=== PATIENT | male | born 1955 | race Caucasian/White ===

== ENCOUNTER 2023-07-04 23:09 | Inpatient (IN) | payer MEDICARE, OTHER ==
[~2023-07-04] VITALS: Ht 177.8 cm; Wt 79.4 kg
[2023-07-04] MEDS ORDERED: PANT40TA49 PO (23:27)
[2023-07-04] MEDS ORDERED: OLAN20TA24 PO (23:27)
[2023-07-04] MEDS ORDERED: RIVA10TA PO (23:27)
[2023-07-04] MEDS ORDERED: HYDR30OI5 TP (23:27)
[2023-07-04] MEDS ORDERED: DONE5TAB34 PO (23:27)
[2023-07-04] MEDS ORDERED: FLUO40CA49 PO (23:27)
[2023-07-04 23:41] LABS: BASOPHILS # (AUTO) 0.1 K/UL (0.0-0.2); BASOPHILS % (AUTO) 0.7 % (0.0-2.0); EOSINOPHILS # (AUTO) 0.2 K/uL (0.0-0.7); EOSINOPHILS % (AUTO) 3.5 % (0.0-7.0); HEMATOCRIT 39.5 % (36.7-47.1); HEMOGLOBIN 12.8 g/dL (12.5-16.3); LYMPHOCYTES # (AUTO) 0.9 K/uL (0.8-4.8); LYMPHOCYTES % (AUTO) 13.3 % (20.5-51.5); MEAN CORPUSCULAR HEMOGLOBIN 29.2 uug (23.8-33.4); MEAN CORPUSCULAR HGB CONC 32 g/dL (32.5-36.3); MEAN CORPUSCULAR VOLUME 89.9 fL (73.0-96.2); MONOCYTES # (AUTO) 0.6 K/uL (0.1-1.30); MONOCYTES % (AUTO) 8.9 % (0.0-11.0); NEUTROPHILS # (AUTO) 5.2 K/uL (1.8-8.9); NEUTROPHILS % (AUTO) 73.6 % (38.5-71.5); PLATELET COUNT (AUTO) 347 K/uL (152-348); RED CELL DISTRIBUTION WIDTH 15.7 % (12.1-16.2); WHITE BLOOD COUNT (AUTO) 7.1 K/uL (3.6-10.2)
[2023-07-04 23:52] LABS: CALCIUM 9.2 mg/dL (8.5-10.1); CARBON DIOXIDE 27 mmol/L (21-32); CHLORIDE 101 mmol/L (98-107); CREATININE 0.8 mg/dL (0.6-1.3); GLUCOSE 116 mg/dL (74-106); POTASSIUM 3.7 mmol/L (3.5-5.1); SODIUM SERUM 136 mmol/L (136-145); UREA NITROGEN, BLOOD 14 mg/dL (7-18)
[2023-07-04 23:57] LABS: AMMONIA < 10 umol/L (11-32); ETHANOL < 3 MG/DL (0-10)
[2023-07-05 00:02] LABS: ALANINE AMINOTRANSFERASE 29 U/L (16-63); ALBUMIN 3.1 g/dL (3.4-5.0); ALKALINE PHOSPHATASE 102 U/L (50-136); ASPARTATE AMINOTRANSFERASE 44 U/L (15-37); BILIRUBIN,DIRECT 0.1 mg/dL (0.0-0.2); BILIRUBIN,TOTAL 0.6 mg/dL (0.2-1.0); TOTAL PROTEIN, SERUM 6.4 g/dL (6.4-8.2)
[2023-07-05 00:06] LABS: THYROID STIMULATING HORMONE 1.848 mIU/mL (0.358-3.740)
[2023-07-05 00:12] LABS: ACETAMINOPHEN < 2.0 ug/mL (10-30)
[2023-07-05 00:13] LABS: DIFFERENTIAL COMMENT 1
[2023-07-05 00:26] LABS: ABG BASE EXCESS 0.6 mmol/L (-2.0-2.0); ABG HCO3 23.8 mmol/L (22.0-26.0); ABG PCO2 34.3 mmHg (35.0-48.0); ABG PO2 48.8 mmHg (75.0-100.0); ABG SITE RIGHT BRACHIAL; ABG TOTAL HEMOGLOBIN 13.8 G/dL (14.0-18.0); AaDO2 86.9 mmHg; COHb 0.8 % (0.0-3.9); MetHb 0.2 % (0.0-1.5); O2Hb 84.1 % (94.0-97.0)
[2023-07-05] MEDS ORDERED: levETIRAcetam 500 MG/5 ML VIAL IV ONE (03:00)
[2023-07-05] MEDS ORDERED: LORAZEPAM 2 MG/1 ML VIAL ONE (03:34)
[2023-07-05] MEDS ORDERED: REMEDY ESSENTIAL ZINC PASTE 113 GM TP PRN (06:30)
[2023-07-05] MEDS ORDERED: HYDROCODONE/APAP 10-325 MG TABLET PO PRN (06:30)
[2023-07-05] MEDS ORDERED: MAGNESIUM HYDROXIDE 30 ML LIQUID UDC PO PRN (06:30)
[2023-07-05] MEDS ORDERED: ONDANSETRON 4 MG/2 ML VIAL IV PRN (06:30)
[2023-07-05] MEDS ORDERED: MORPHINE SULFATE 2 MG/1 ML DISP.SYRIN IV PRN (06:30)
[2023-07-05] MEDS ORDERED: TEMAZEPAM 15 MG CAPSULE PO PRN (06:30)
[2023-07-05] MEDS ORDERED: ENOXAPARIN SODIUM 40 MG/0.4 ML DISP.SYRIN SQ ONE (06:47)
[2023-07-05] MEDS: ENOXAPARIN SODIUM 40 MG/0.4 ML DISP.SYRIN SQ SCH (06:50)
[2023-07-05] MEDS ORDERED: PANTOPRAZOLE SODIUM 40 MG TABLET.DR PO SCH ×2 (07:00→09:00)
[2023-07-05] MEDS ORDERED: IV NORMAL SALINE 250 ML IV ONE (08:10)
[2023-07-05] MEDS ORDERED: IOHEXOL 350 100 ML INFUS..BTL ONE (08:10)
[2023-07-05] MEDS ORDERED: SWABABLE VALVE TRANSFER SET EA MC ONE (08:10)
[2023-07-05] MEDS ORDERED: ASPIRIN EC 325 MG TABLET.DR PO SCH ×2 (09:00)
[2023-07-05] MEDS: FLUOXETINE HCL 20 MG CAPSULE PO SCH (09:59)
[2023-07-05] MEDS: ASPIRIN EC 81 MG TABLET.DR PO SCH (09:59)
[2023-07-05] MEDS: PANTOPRAZOLE SODIUM 40 MG TABLET.DR PO SCH (09:59)
[2023-07-05] MEDS: ENOXAPARIN SODIUM 40 MG/0.4 ML DISP.SYRIN SQ ONE (10:00)
[2023-07-05 16:30] VITALS: BP 99/60; TEMP 97.3; O2SAT 99
[2023-07-05 16:36] LABS: ABG BASE EXCESS 1.4 mmol/L (-2.0-2.0); ABG HCO3 26.3 mmol/L (22.0-26.0); ABG PCO2 42.6 mmHg (35.0-48.0); ABG PH 7.409 (7.340-7.440); ABG PO2 135.3 mmHg (75.0-100.0); ABG SITE RIGHT RADIAL; ABG TOTAL HEMOGLOBIN 13.3 G/dL (14.0-18.0); AaDO2 98.7 mmHg; COHb 0.8 % (0.0-3.9); MetHb 0.1 % (0.0-1.5); O2Hb 98.2 % (94.0-97.0)
[2023-07-05 16:45] VITALS: O2SAT 99
[2023-07-05] MEDS ORDERED: RIVAROXABAN 10 MG TABLET PO SCH (18:00)
[2023-07-05] MEDS: ACETAMINOPHEN 325 MG TABLET PO PRN (18:16)
[2023-07-05 20:00] VITALS: BP 97/62; TEMP 97.4; O2SAT 99
[2023-07-05] MEDS: OLANZAPINE 5 MG TABLET PO SCH (21:39)
[2023-07-05] MEDS: DONEPEZIL 5 MG TABLET PO SCH (21:39)
[2023-07-05] MEDS: ENOXAPARIN SODIUM 80 MG/0.8 ML DISP.SYRIN SQ SCH (21:41)
[2023-07-05 23:17] VITALS: O2SAT 99
[2023-07-06 04:22] LABS: *BILIRUBIN,URIN NEGATIVE (NEGATIVE); *BLOOD, URINE NEGATIVE (NEGATIVE); *CLARITY,URINE CLEAR (CLEAR); *COLOR,URINE YELLOW (YELLOW); *KETONES,URINE NEGATIVE (NEGATIVE); *PROTEIN,URINE NEGATIVE (NEGATIVE); LEUKOCYTE ESTERASE ,URINE NEGATIVE (NEGATIVE); NITRITE, URINE NEGATIVE (NEGATIVE); UGLUCOSE NEGATIVE (NEGATIVE)
[2023-07-06 04:29] LABS: *AMPHETAMINE, URINE NEGATIVE (NEGATIVE); *BARBITURATE, URINE NEGATIVE (NEGATIVE); *BENZODIAZEPINE, URINE NEGATIVE (NEGATIVE); *CANNABINOID, URINE NEGATIVE (NEGATIVE); *COCCAINE, URINE NEGATIVE (NEGATIVE); *OPIATE, URINE NEGATIVE (NEGATIVE); *PHENCYCLIDINE SCREEN,URINE NEGATIVE (NEGATIVE); FENTANYL, URINE NEGATIVE (NEGATIVE)
[2023-07-06 04:57] LABS: BACTERIA,URINE FEW /HPF (NONE SEEN); RBC,URINE 0-3 /HPF (0-3); SQUAMOUS EPITHELIAL CELL,UR FEW /HPF (NONE SEEN); WBC,URINE NONE SEEN /HPF (0-3)
[2023-07-06 05:53] VITALS: BP 99/61; TEMP 97.3; O2SAT 100
[2023-07-06 08:00] VITALS: BP 96/67; TEMP 97.7; O2SAT 99
[2023-07-06 09:10] LABS: BASOPHILS # (AUTO) 0.1 K/UL (0.0-0.2); BASOPHILS % (AUTO) 1.5 % (0.0-2.0); EOSINOPHILS # (AUTO) 0.6 K/uL (0.0-0.7); HEMATOCRIT 39.4 % (36.7-47.1); HEMOGLOBIN 12.9 g/dL (12.5-16.3); LYMPHOCYTES # (AUTO) 0.8 K/uL (0.8-4.8); LYMPHOCYTES % (AUTO) 15.3 % (20.5-51.5); MEAN CORPUSCULAR HEMOGLOBIN 29.6 uug (23.8-33.4); MEAN CORPUSCULAR HGB CONC 33 g/dL (32.5-36.3); MEAN CORPUSCULAR VOLUME 90.5 fL (73.0-96.2); MONOCYTES # (AUTO) 0.4 K/uL (0.1-1.30); MONOCYTES % (AUTO) 7.1 % (0.0-11.0); NEUTROPHILS # (AUTO) 3.2 K/uL (1.8-8.9); NEUTROPHILS % (AUTO) 64.1 % (38.5-71.5); PLATELET COUNT (AUTO) 305 K/uL (152-348); RED BLOOD CELL COUNT(AUTO) 4.35 MIL/uL (4.06-5.63); RED CELL DISTRIBUTION WIDTH 15.5 % (12.1-16.2)
[2023-07-06 09:18] LABS: CALCIUM 9.3 mg/dL (8.5-10.1); CREATININE 1.1 mg/dL (0.6-1.3); MAGNESIUM 2.4 mg/dL (1.8-2.4); PHOSPHOROUS 4.5 mg/dL (2.5-4.9); POTASSIUM 3.5 mmol/L (3.5-5.1)
[2023-07-06 09:30] LABS: DIFFERENTIAL COMMENT 1
[2023-07-06 09:31] LABS: THYROID STIMULATING HORMONE 0.636 mIU/mL (0.358-3.740)
[2023-07-06 12:00] VITALS: BP 90/56; TEMP 97.6; O2SAT 100
[2023-07-06] MEDS: diphenhydrAMINE 25 MG CAP PO PRN (14:35)
[2023-07-06 16:22] VITALS: BP 102/63; TEMP 97.6; O2SAT 99
[2023-07-06 21:00] VITALS: BP 104/62; TEMP 97.6; O2SAT 99
[2023-07-07] VITALS (7 sets, daily range): BP systolic 91–113; BP diastolic 53–75; TEMP 97.7–98.4; O2SAT 95–100
[2023-07-07 07:10] LABS: BASOPHILS # (AUTO) 0.1 K/UL (0.0-0.2); BASOPHILS % (AUTO) 1.9 % (0.0-2.0); EOSINOPHILS # (AUTO) 0.7 K/uL (0.0-0.7); EOSINOPHILS % (AUTO) 12.9 % (0.0-7.0); HEMOGLOBIN 11.5 g/dL (12.5-16.3); LYMPHOCYTES # (AUTO) 0.5 K/uL (0.8-4.8); LYMPHOCYTES % (AUTO) 9.8 % (20.5-51.5); MEAN CORPUSCULAR HEMOGLOBIN 29.5 uug (23.8-33.4); MEAN CORPUSCULAR HGB CONC 33 g/dL (32.5-36.3); MEAN CORPUSCULAR VOLUME 89.7 fL (73.0-96.2); MONOCYTES # (AUTO) 0.5 K/uL (0.1-1.30); MONOCYTES % (AUTO) 9.5 % (0.0-11.0); NEUTROPHILS # (AUTO) 3.5 K/uL (1.8-8.9); NEUTROPHILS % (AUTO) 65.9 % (38.5-71.5); PLATELET COUNT (AUTO) 269 K/uL (152-348); RED BLOOD CELL COUNT(AUTO) 3.91 MIL/uL (4.06-5.63); RED CELL DISTRIBUTION WIDTH 15.1 % (12.1-16.2); WHITE BLOOD COUNT (AUTO) 5.3 K/uL (3.6-10.2)
[2023-07-07 07:24] LABS: DIFFERENTIAL COMMENT 1
[2023-07-07 07:41] LABS: CREATININE 0.9 mg/dL (0.6-1.3); POTASSIUM 3.9 mmol/L (3.5-5.1)
[2023-07-08] VITALS (7 sets, daily range): BP systolic 93–135; BP diastolic 55–80; TEMP 97–97.9; O2SAT 96–100
[2023-07-08 07:06] LABS: EOSINOPHILS # (AUTO) 0.6 K/uL (0.0-0.7); HEMATOCRIT 36.3 % (36.7-47.1); HEMOGLOBIN 11.7 g/dL (12.5-16.3); LYMPHOCYTES # (AUTO) 0.9 K/uL (0.8-4.8); LYMPHOCYTES % (AUTO) 18.6 % (20.5-51.5); MEAN CORPUSCULAR HEMOGLOBIN 29.1 uug (23.8-33.4); MEAN CORPUSCULAR HGB CONC 32 g/dL (32.5-36.3); MEAN CORPUSCULAR VOLUME 90.1 fL (73.0-96.2); MONOCYTES # (AUTO) 0.5 K/uL (0.1-1.30); NEUTROPHILS # (AUTO) 2.6 K/uL (1.8-8.9); NEUTROPHILS % (AUTO) 57.4 % (38.5-71.5); PLATELET COUNT (AUTO) 260 K/uL (152-348); RED BLOOD CELL COUNT(AUTO) 4.03 MIL/uL (4.06-5.63); RED CELL DISTRIBUTION WIDTH 15.2 % (12.1-16.2); WHITE BLOOD COUNT (AUTO) 4.6 K/uL (3.6-10.2)
[2023-07-08 07:11] LABS: DIFFERENTIAL COMMENT 1
[2023-07-08 07:38] LABS: CALCIUM 8.8 mg/dL (8.5-10.1); CREATININE 0.7 mg/dL (0.6-1.3); POTASSIUM 3.9 mmol/L (3.5-5.1)
[2023-07-08] MEDS: APIXABAN 5 MG TABLET PO SCH (08:57)
[2023-07-09 00:14] VITALS: BP 121/74; TEMP 97.8; O2SAT 96
[2023-07-09 04:40] VITALS: BP 102/63; TEMP 97.7; O2SAT 96
[2023-07-09 07:46] VITALS: BP 126/77; TEMP 97.1; O2SAT 100
[2023-07-09] MEDS ORDERED: APIX5TAB PO (10:10)
[2023-07-09] MEDS ORDERED: ASPI-618 PO (10:10)
[2023-07-09 15:57] VITALS: BP 126/78; TEMP 97.2; O2SAT 97
[2023-07-09 19:15] VITALS: BP 113/71; TEMP 98; O2SAT 96
[2023-07-10 06:00] VITALS: BP 96/57; TEMP 97.6; O2SAT 99
[2023-07-10 11:22] VITALS: BP 106/63; TEMP 98.2; O2SAT 95
[2023-07-10 16:19] VITALS: BP 121/82; TEMP 98.4; O2SAT 94
[2023-07-10 20:25] VITALS: BP 145/86; TEMP 98.5; O2SAT 96
[2023-07-11 06:08] VITALS: BP 111/76; TEMP 97.7; O2SAT 95
[2023-07-11 11:31] VITALS: BP 100/62; TEMP 97.5; O2SAT 94
[2023-07-11 15:31] VITALS: BP 95/59; TEMP 98.6; O2SAT 94
== END 2023-07-11 17:40 | DRG 175 ==
LOC: ER 23:20 → TELE3 07-05 08:21 → MEDSURG3 07-09 09:50
PROVIDERS: ADMIT Nurse Practitioner Acute Care; ATTEND Internal Medicine
DX: I26.99 Other pulmonary embolism without acute cor pulmonale (principal); I21.A1 Myocardial infarction type 2; E44.0 Moderate protein-calorie malnutrition; R45.851 Suicidal ideations; F25.1 Schizoaffective disorder, depressive type; G20.A1 Parkinson's disease without dyskinesia, without mention of fluctuations; F02.80 Dementia in other diseases classified elsewhere, unspecified severity, without behavioral disturbance, psychotic disturbance, mood disturbance, and anxiety; K21.9 Gastro-esophageal reflux disease without esophagitis; N40.0 Benign prostatic hyperplasia without lower urinary tract symptoms; I10 Essential (primary) hypertension; G40.909 Epilepsy, unspecified, not intractable, without status epilepticus; Z86.718 Personal history of other venous thrombosis and embolism; J44.9 Chronic obstructive pulmonary disease, unspecified; R26.2 Difficulty in walking, not elsewhere classified; Z98.49 Cataract extraction status, unspecified eye; S90.32XA Contusion of left foot, initial encounter; S09.90XA Unspecified injury of head, initial encounter; S90.31XA Contusion of right foot, initial encounter; X58.XXXA Exposure to other specified factors, initial encounter; Y92.89 Other specified places as the place of occurrence of the external cause; E88.09 Other disorders of plasma-protein metabolism, not elsewhere classified; Z79.01 Long term (current) use of anticoagulants
CPT/HCPCS: 36415; 36600; 70450; 71045; 71275; 83605; 83735; 84100; 84443; 84484; 85025; 85730; 87040; 93005; 93307; A4606; A4663; C1758; G0378; G0480; J1650; J1953; J2060; Q0163; Q9967